=== PATIENT | female | born 1950 | race Caucasian/White ===

== ENCOUNTER 2017-07-05 09:09 | Emergency (ER) | payer MEDICARE, OTHER ==
[~2017-07-05] VITALS: Ht 165.1 cm; Wt 83.6 kg
[2017-07-05] MEDS ORDERED: SIMV10TA2 (09:18)
[2017-07-05] MEDS ORDERED: RABIES IMMUNE GLOBULIN 1500 INTERNATIONAL UNITS/10 ML VIAL (90375) IM ONE ×2 (09:30→09:45)
[2017-07-05] MEDS ORDERED: RABIES VACCINE HUMAN 2.5 INTERNATIONAL UNITS/ML VIAL (90675) IM ONE (09:30)
[2017-07-05] MEDS ORDERED: RABIES IMMUNE GLOBULIN 300 INTERNATIONAL UNITS/2 ML VIAL (90375) IM ONE (09:45)
[2017-07-05] MEDS ORDERED: ACETAMINOPHEN 325 MG TAB PO ONE (10:00)
[2017-07-05] MEDS ORDERED: LIDOCAINE 2% MDV 20 ML VIAL SC ONE (10:15)
[2017-07-05] MEDS ORDERED: METOPROLOL SUCC *XL* 25MG TAB (TopROL *XL*) PO ONE (11:00)
[2017-07-05] MEDS ORDERED: cloNIDine 0.1 MG TAB PO ONE (12:15)
[2017-07-05 12:26] VITALS: BP 197/77
[2017-07-05 13:00] VITALS: BP 146/67
[2017-07-05] MEDS ORDERED: HYDR12.55 PO (13:29)
== END 2017-07-05 13:41 | disposition home or self-care (01) ==
LOC: M ED 09:09
DX: I10 Essential (primary) hypertension (principal); Z20.3 Contact with and (suspected) exposure to rabies; Z23 Encounter for immunization; J98.4 Other disorders of lung; E78.00 Pure hypercholesterolemia, unspecified; Z79.899 Other long term (current) drug therapy; Z90.79 Acquired absence of other genital organ(s); Z87.891 Personal history of nicotine dependence

== ENCOUNTER 2017-07-08 11:19 | Emergency (ER) | payer MEDICARE, OTHER ==
[~2017-07-08] VITALS: Ht 167.6 cm; Wt 86.4 kg
[2017-07-08 11:19] VITALS: BP 148/69
[~2017-07-08 11:19] MED LIST: HYDR12.55 PO; SIMV10TA2
[2017-07-08] MEDS ORDERED: RABIES VACCINE HUMAN 2.5 INTERNATIONAL UNITS/ML VIAL (90675) IM ONE (12:00)
== END 2017-07-08 12:22 | disposition home or self-care (01) ==
LOC: M ED 11:19
DX: Z20.3 Contact with and (suspected) exposure to rabies (principal); J98.4 Other disorders of lung; Z79.899 Other long term (current) drug therapy

== ENCOUNTER 2017-07-12 10:41 | Emergency (ER) | payer MEDICARE, OTHER ==
[~2017-07-12] VITALS: Ht 167.6 cm; Wt 89.1 kg
[2017-07-12 10:42] VITALS: BP 146/67
[2017-07-12] MEDS ORDERED: RABIES VACCINE HUMAN 2.5 INTERNATIONAL UNITS/ML VIAL (90675) IM ONE (11:00)
== END 2017-07-12 11:11 | disposition home or self-care (01) ==
LOC: M ED 10:41
DX: Z20.3 Contact with and (suspected) exposure to rabies (principal); J98.4 Other disorders of lung; E78.00 Pure hypercholesterolemia, unspecified; Z88.8 Allergy status to other drugs, medicaments and biological substances; Z79.899 Other long term (current) drug therapy

== ENCOUNTER 2017-07-19 11:31 | Emergency (ER) | payer MEDICARE, OTHER ==
[~2017-07-19] VITALS: Ht 170.2 cm; Wt 88.7 kg
[2017-07-19] MEDS ORDERED: RABIES VACCINE HUMAN 2.5 INTERNATIONAL UNITS/ML VIAL (90675) IM ONE (11:45)
[2017-07-19 12:11] VITALS: BP 129/75
== END 2017-07-19 12:12 | disposition home or self-care (01) ==
LOC: M ED 11:31
DX: Z20.3 Contact with and (suspected) exposure to rabies (principal); Z87.891 Personal history of nicotine dependence

== ENCOUNTER → 2017-11-19 | Day surgery (SDC) | payer MEDICARE ==
[~2017-11-19] VITALS: Ht 167.6 cm; Wt 88.5 kg
[~2017-11-19] MED LIST changes: +CALC600T57 PO; +LIDOCAINE 2% INJ 100 MG/5 ML SDV (FOR ANES.) As Ordered ONE; +MULT1TAB10 PO; +NS 1,000 ML IV ONE; +PROPOFOL 200 MG/20 ML VIAL As Ordered ONE
--- NOTE | 2017-11-19 09:35 | ROOR ---
Patient Name: Judith Rogers Procedure Date: 11/19/2017 9:11 AM Date of : 1950 Age: 67 Room: [facility] Gender: Female Note Status: Finalized Procedure: Colonoscopy Indications: Screening for colorectal malignant neoplasm Providers: Iker Kraft Jr, MD Referring MD: Sherri Toussaint DO Requesting Provider: Medicines: Propofol per Anesthesia Complications: No immediate complications. Procedure: Pre-Anesthesia Assessment: - Prior to the procedure, a History and Physical was performed, and patient medications and allergies were reviewed. The patient is competent. The risks and benefits of the procedure and the sedation options and risks were discussed with the patient. All questions were answered and informed consent was obtained. Patient identification and proposed procedure were verified by the physician and the nurse in the pre-procedure area and in the procedure room. Mental Status Examination: alert and oriented. Airway Examination: normal oropharyngeal airway and neck mobility. Respiratory Examination: clear to auscultation. CV Examination: normal. ASA Grade Assessment: II - A patient with mild systemic disease. After reviewing the risks and benefits, the patient was deemed in satisfactory condition to undergo the procedure. The anesthesia plan was to use moderate sedation / analgesia (conscious sedation). Immediately prior to administration of medications, the patient was re-assessed for adequacy to receive sedatives. The heart rate, respiratory rate, oxygen saturations, blood pressure, adequacy of pulmonary ventilation, and response to care were monitored throughout the procedure. The physical status of the patient was re-assessed after the procedure. The Colonoscope was introduced through the anus and advanced to the cecum, identified by appendiceal orifice and ileocecal valve. The colonoscopy was performed without difficulty. The patient tolerated the procedure well. The quality of the bowel preparation was excellent. Findings: The rectum, recto-sigmoid colon, descending colon, transverse colon, ascending colon, cecum, appendiceal orifice and ileocecal valve appeared normal. Multiple small and large-mouthed diverticula were found in the sigmoid colon. Impression: - The rectum, recto-sigmoid colon, descending colon, transverse colon, ascending colon, cecum, appendiceal orifice and ileocecal valve are normal. - Diverticulosis in the sigmoid colon. - No specimens collected. Recommendation: - Discharge patient to home (ambulatory). - Repeat colonoscopy in 10 years for screening purposes. Iker Kraft MD Iker Kraft Jr, MD 11/19/2017 9:34:51 AM This report has been signed electronically. Number of Addenda: 0 Note Initiated On: 11/19/2017 9:11 AM Estimated Blood Loss: Estimated blood loss: none.
[2017-11-19 10:15] VITALS: BP 156/82
== END | disposition home or self-care (01) ==
LOC: M OPP 07:51
PROVIDERS: ATTEND Surgery
DX: Z12.11 Encounter for screening for malignant neoplasm of colon (principal); K57.30 Diverticulosis of large intestine without perforation or abscess without bleeding; I10 Essential (primary) hypertension; E78.5 Hyperlipidemia, unspecified; D86.9 Sarcoidosis, unspecified; E66.9 Obesity, unspecified; Z79.899 Other long term (current) drug therapy; Z87.891 Personal history of nicotine dependence; Z80.3 Family history of malignant neoplasm of breast

== ENCOUNTER 2020-02-21 10:42 | Emergency (ER) | payer MEDICARE ==
[~2020-02-21] VITALS: Ht 167.6 cm; Wt 94.2 kg
[~2020-02-21 10:42] MED LIST changes: -LIDOCAINE 2% INJ 100 MG/5 ML SDV (FOR ANES.) As Ordered ONE; -NS 1,000 ML IV ONE; -PROPOFOL 200 MG/20 ML VIAL As Ordered ONE; -SIMV10TA2; +SIMV10TA21
[2020-02-21] MEDS ORDERED: AMLO2.5T3 (10:51)
[2020-02-21 11:34] LABS: BASO % 0.5 % (0.0-1.0); EOS # 0.1 10^3/uL (0.0-0.5); EOS % 1.4 % (0.0-3.0); HEMATOCRIT 47.8 % (36.0-47.0); LYMPH % 21.8 % (24.0-44.0); MEAN CORPUSCULAR HEMOGLOBIN 26.1 pg (27.0-33.0); MEAN CORPUSCULAR HGB CONC 31.4 g/dl (32.0-36.5); MEAN CORPUSCULAR VOLUME 83.3 fl (80.0-96.0); MONO # 0.5 10^3/uL (0.0-0.8); MONO % 10.4 % (0.0-5.0); NEUTROPHILS # 2.9 10^3/uL (1.5-8.5); NEUTROPHILS % 65.4 % (36.0-66.0); PLATELET COUNT, AUTOMATED 221 10^3/uL (150-450); RED BLOOD COUNT 5.74 10^6/uL (4.00-5.40); WHITE BLOOD COUNT 4.4 10^3/uL (4.0-10.0)
--- NOTE | 2020-02-21 11:53 | REP ---
Clinical: Chest pain. Comparison: 09/04/2015 Findings: Mediastinum and cardiac silhouette are within normal limits and stable. Lung noble are relatively clear/stable and without focal consolidation, obvious effusion or pneumothorax. Skeletal structures are intact. Impression: Stable chronic findings. No focal consolidation or effusion. Electronically Signed by Romeo Rene MD 02/21/2020 11:44 A
[2020-02-21 12:07] LABS: BLOOD UREA NITROGEN 24 MG/DL (7-18); CARBON DIOXIDE LEVEL 31 MEQ/L (21-32); CHLORIDE LEVEL 105 MEQ/L (98-107); CK-MB VALUE MASS < 1.0 NG/ML (<3.6); CPK CREATINE PHOSPHOKINASE 46 U/L (26-192); CREATININE FOR GFR 0.87 MG/DL (0.55-1.30); GLOMERULAR FILTRATION RATE > 60.0 (>45); GLUCOSE, FASTING 93 MG/DL (70-100); MB/CK RELATIVE INDEX 2.17 (< OR =4); POTASSIUM SERUM 4.1 MEQ/L (3.5-5.1); SODIUM LEVEL 140 MEQ/L (136-145); TROPONIN I < 0.02 NG/ML (< 0.10)
[2020-02-21 13:04] VITALS: BP 150/70
--- NOTE | 2020-02-22 05:29 | ECGEPIP ---
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
== END 2020-02-21 13:05 | disposition home or self-care (01) ==
LOC: M ED 10:42
DX: F43.0 Acute stress reaction (principal); I10 Essential (primary) hypertension; E78.5 Hyperlipidemia, unspecified; D86.9 Sarcoidosis, unspecified; E66.9 Obesity, unspecified; Z79.899 Other long term (current) drug therapy

== ENCOUNTER → 2021-10-04 | Outpatient (REF) | payer MEDICARE, OTHER ==
[~2021-10-04] MED LIST changes: +AMLO2.5T3
== END ==
LOC: M LAB REF 17:28
PROVIDERS: ATTEND Dermatology
DX: D22.121 Melanocytic nevi of left upper eyelid, including canthus (principal)

== ENCOUNTER → 2021-12-17 | Outpatient (CLI) | payer MEDICARE, OTHER | LOC: M WHC 14:27 | PROVIDERS: ATTEND Internal Medicine | DX: Z12.31 Encounter for screening mammogram for malignant neoplasm of breast (principal) ==

== ENCOUNTER → 2022-02-07 | Outpatient (REF) | payer MEDICARE, OTHER | LOC: M LAB REF 12:17 | PROVIDERS: ATTEND Physician Assistant | DX: R30.0 Dysuria (principal) ==

== ENCOUNTER → 2022-12-13 | Outpatient (CLI) | payer MEDICARE, OTHER | LOC: M RAD 11:55 | PROVIDERS: ATTEND Physician Assistant | DX: M79.631 Pain in right forearm (principal) ==

== ENCOUNTER → 2022-12-19 | Outpatient (CLI) | payer MEDICARE | LOC: M WHC 10:29 | PROVIDERS: ATTEND Internal Medicine | DX: Z12.31 Encounter for screening mammogram for malignant neoplasm of breast (principal); M85.851 Other specified disorders of bone density and structure, right thigh ==

== ENCOUNTER → 2022-12-24 | Outpatient (REF) | payer MEDICARE | LOC: M SFHCDERM 17:07 | PROVIDERS: ATTEND Physician Assistant | DX: L92.0 Granuloma annulare (principal) ==

== ENCOUNTER → 2023-02-16 | Outpatient (REF) | payer MEDICARE | LOC: M WUC 12:21 | PROVIDERS: ATTEND Student in an Organized Health Care Education/Training Program | DX: R30.0 Dysuria (principal) ==

== ENCOUNTER → 2023-09-29 | Outpatient (REF) | payer MEDICARE | LOC: M SFHCDERM 14:03 | PROVIDERS: ATTEND Dermatology | DX: L30.8 Other specified dermatitis (principal) ==

== ENCOUNTER 2023-10-29 13:29 | Emergency (ER) | payer OTHER, MEDICARE ==
[~2023-10-29] VITALS: Ht 167.6 cm; Wt 95.2 kg
[2023-10-29 13:30] VITALS: BP 168/94; TEMP 98; O2SAT 98
[2023-10-29] MEDS ORDERED: IBUP200T46 PO (13:53)
[2023-10-29] MEDS ORDERED: IBUPROFEN 600MG TAB PO ONE (16:25)
[2023-10-29] MEDS ORDERED: NEOSPORIN OINT 0.9 GM PKT TOP ONE (20:40)
[2023-10-29] MEDS ORDERED: CEPH500C PO (20:47)
== END 2023-10-29 21:41 | disposition home or self-care (01) ==
LOC: M ED 13:29
DX: S80.11XA Contusion of right lower leg, initial encounter (principal); S80.821A Blister (nonthermal), right lower leg, initial encounter; V89.2XXA Person injured in unspecified motor-vehicle accident, traffic, initial encounter; Y92.9 Unspecified place or not applicable; Y93.9 Activity, unspecified; Y99.9 Unspecified external cause status; I10 Essential (primary) hypertension; E78.5 Hyperlipidemia, unspecified; K21.9 Gastro-esophageal reflux disease without esophagitis; D86.9 Sarcoidosis, unspecified; E66.9 Obesity, unspecified; Z79.899 Other long term (current) drug therapy

== ENCOUNTER → 2024-01-03 | Outpatient (REF) | payer MEDICARE ==
[~2024-01-03] MED LIST changes: +CEPH500C PO; +IBUP200T46 PO
== END ==
LOC: M LAB REF 17:57
PROVIDERS: ATTEND Physician Assistant
DX: H60.8X2 Other otitis externa, left ear (principal)

== ENCOUNTER 2024-01-15 11:23 | Emergency (ER) | payer MEDICARE, OTHER ==
[~2024-01-15] VITALS: Ht 167.6 cm; Wt 91.5 kg
[2024-01-15] MEDS ORDERED: FLUTISP (14:43)
[2024-01-15 14:52] VITALS: BP 167/76; TEMP 98.2; O2SAT 97
== END 2024-01-15 14:58 | disposition home or self-care (01) ==
LOC: M ED 11:23
DX: H69.90 Unspecified Eustachian tube disorder, unspecified ear (principal); I10 Essential (primary) hypertension; H81.4 Vertigo of central origin; Z91.09 Other allergy status, other than to drugs and biological substances; Z79.899 Other long term (current) drug therapy; Z79.1 Long term (current) use of non-steroidal anti-inflammatories (NSAID)

== ENCOUNTER 2024-02-17 11:05 | Emergency (ER) | payer MEDICARE, OTHER ==
[~2024-02-17] VITALS: Ht 167.6 cm; Wt 93.4 kg
[~2024-02-17 11:05] MED LIST changes: +FLUTISP
[2024-02-17 12:08] LABS: BASO % 0.4 % (0.0-1.0); EOS % 0.6 % (0.0-3.0); HEMATOCRIT 49.8 % (36.0-47.0); HEMOGLOBIN 15.6 g/dl (12.0-15.5); LYMPH # 1.1 10^3/uL (1.5-5.0); LYMPH % 15.5 % (24.0-44.0); MEAN CORPUSCULAR HGB CONC 31.3 g/dl (32.0-36.5); MEAN CORPUSCULAR VOLUME 83.1 fl (80.0-96.0); MONO # 0.6 10^3/uL (0.0-0.8); NEUTROPHILS # 5.3 10^3/uL (1.5-8.5); NEUTROPHILS % 75.2 % (36.0-66.0); PLATELET COUNT, AUTOMATED 259 10^3/uL (150-450); RED BLOOD COUNT 5.99 10^6/uL (4.00-5.40)
[2024-02-17 12:32] LABS: CK-MB VALUE MASS < 1.0 NG/ML (<3.6)
[2024-02-17 12:34] LABS: LIPASE 33 U/L (12-53)
[2024-02-17 12:35] LABS: CPK CREATINE PHOSPHOKINASE 48 U/L (34-145); MB/CK RELATIVE INDEX 2.08 (< OR =4)
[2024-02-17 12:36] LABS: ALBUMIN 4.3 G/DL (3.2-5.2); ALKALINE PHOSPHATASE 116 U/L (46-116); ALT/SGPT 27 U/L (7.0-40); AST/SGOT 16 U/L (<34); BILIRUBIN,DIRECT 0.2 MG/DL (<0.4); BILIRUBIN,TOTAL 0.6 MG/DL (0.3-1.2); BLOOD UREA NITROGEN 19 MG/DL (9-23); CALCIUM LEVEL 10.2 MG/DL (8.3-10.6); CARBON DIOXIDE LEVEL 27 MMOL/L (20-31); CHLORIDE LEVEL 106 MMOL/L (98-107); GLOMERULAR FILTRATION RATE > 60.0 (>39); GLUCOSE, FASTING 102 MG/DL (74-106); POTASSIUM SERUM 4.1 MMOL/L (3.5-5.1); SODIUM LEVEL 140 MMOL/L (136-145); THYROID STIMULATING HORMONE 1.918 uIU/ML (0.55-4.78); TOTAL PROTEIN 7.4 G/DL (5.7-8.2)
[2024-02-17 12:37] LABS: FREE T4 1.31 NG/DL (0.89-1.76)
[2024-02-17 15:14] VITALS: BP 164/84; TEMP 97; O2SAT 98
== END 2024-02-17 15:30 | disposition home or self-care (01) ==
LOC: M ED 11:05
DX: R07.9 Chest pain, unspecified (principal); I10 Essential (primary) hypertension; K21.9 Gastro-esophageal reflux disease without esophagitis; E78.5 Hyperlipidemia, unspecified; Z91.09 Other allergy status, other than to drugs and biological substances; Z79.899 Other long term (current) drug therapy; Z79.1 Long term (current) use of non-steroidal anti-inflammatories (NSAID)

== ENCOUNTER → 2024-03-24 | Outpatient (CLI) | payer MEDICARE | LOC: M WHC 09:47 | PROVIDERS: ATTEND Internal Medicine | DX: Z12.31 Encounter for screening mammogram for malignant neoplasm of breast (principal) ==

== ENCOUNTER → 2025-01-09 | Outpatient (CLI) | payer MEDICARE | LOC: M WUC 15:20 | PROVIDERS: ATTEND Internal Medicine | DX: M19.012 Primary osteoarthritis, left shoulder (principal); M19.011 Primary osteoarthritis, right shoulder ==

== ENCOUNTER → 2025-01-09 | Outpatient (REF) | payer MEDICARE ==
[2025-01-12 08:53] LABS: ANA PATTERN Nuclear, Speckled (NEGATIVE); ANA PATTERN 2 Cytoplasmic; ANA SCREEN, IFA POSITIVE (NEGATIVE); ANA TITER 1:40 titer (<1:40); ANA TITER 2 1:40 titer (NEGATIVE)
[2025-01-13 22:32] LABS: LYME TOTAL ANTIBODY CIA <= 0.90 Index (<=0.90)
== END ==
LOC: M LAB REF 17:23
PROVIDERS: ATTEND Internal Medicine
DX: M25.50 Pain in unspecified joint (principal)

== ENCOUNTER → 2025-01-25 | Outpatient (REF) | payer MEDICARE ==
[2025-01-25 14:31] LABS: C REACTIVE PROTEIN QUANTITATIV < 0.50 MG/DL (<1.0)
[2025-01-25 14:32] LABS: RHEUMATOID FACTOR QUANT < 3.5 IU/ML (<14)
[2025-01-26 13:08] LABS: RNP ANTIBODY <1.0 NEG AI (<1.0 NEG); SM ANTIBODY <1.0 NEG AI (<1.0 NEG); SSA SJOGRENS A <1.0 NEG AI (<1.0 NEG); SSB SJOGRENS B <1.0 NEG AI (<1.0 NEG)
== END ==
LOC: M LAB REF 12:29
PROVIDERS: ATTEND Internal Medicine
DX: M25.50 Pain in unspecified joint (principal); M79.10 Myalgia, unspecified site

== ENCOUNTER → 2025-03-31 | Outpatient (CLI) | payer MEDICARE | LOC: M WHC 10:58 | PROVIDERS: ATTEND Internal Medicine | DX: Z12.31 Encounter for screening mammogram for malignant neoplasm of breast (principal) ==

== ENCOUNTER → 2025-10-03 | Outpatient (CLI) | payer MEDICARE | LOC: M WUC 12:57 | PROVIDERS: ATTEND Internal Medicine | DX: M51.360 Other intervertebral disc degeneration, lumbar region with discogenic back pain only (principal) ==